=== PATIENT | male | born 1995 | race African-American/Black ===

== ENCOUNTER 2017-04-22 11:53 | Emergency (ER) | payer OTHER ==
--- NOTE | ~2017-04-22 | CT71 ---
[facility] A Service of [facility] RADIOLOGY TEXT RESULTS PATIENT: JOSE SHELL LOCATION: CFTX : 93 UNIT #: [id number] AGE: [address]: Fany Magaña SEX: M ORDER DR: [id number] [facility]. [place], [place] [address] [id number] E MR#: [id number] Acc #: [id number] NAME: JOSE SHELL : 1995 SEX: M STUDY DATE/TIME: 04/22/2017 13:29 UNIT: CFTX ROOM: STUDY DESCRIPTION: CT Head Wo Contrast Attending Physician: Fany Magaña Pa-C Ordering Physician: Fany Magaña Pa-C Primary Care Physician: No Primary Care Physician MEDICAL IMAGING REPORT This report is preliminary unless electronic signature is present EXAM CT head without contrast 04/22/2017. HISTORY 22-year-old male with headaches beginning this morning. COMPARISON None. TECHNIQUE Routine unenhanced axial images performed through the brain. This CT exam was performed with one or more of the following radiation dose reduction techniques: automatic exposure control, adjustment of mA and/or kV according to patient size, and iterative reconstruction. FINDINGS No hemorrhage, acute infarction, mass lesion, or abnormal extraaxial fluid collection. No midline shift or focal mass effect. Ventricular system is normal in size and configuration. No acute bony abnormality. Partially imaged mucous retention cyst left maxillary sinus. Visualized mastoid air cells are clear. IMPRESSION 1. No acute intracranial abnormality. 2. Partially imaged mucous retention cyst left maxillary sinus. Dictated by... Thomas Todd M.D. THIS IS AN ELECTRONICALLY VERIFIED REPORT Thomas Todd M.D. at 04/22/2017 5:00 PM [email or web address] [facility] A Service of [facility] RADIOLOGY TEXT RESULTS PATIENT: JOSE SHELL LOCATION: [place] : 93 UNIT #: [id number] AGE: [address]: Fany Magaña SEX: M ORDER DR: TD: 04/22/2017 16:46 JOB #: [id number] MEDICAL IMAGING REPORT Page 1 of 1 COPY
[2017-04-22 12:54] LABS: BASOPHIL% 0.2 % (0-2.5); DIFF IND NO; EOSINOPHIL% 0.1 % (0.0-7.0); HEMATOCRIT 48.8 % (38.0-50.0); HEMOGLOBIN 15.8 gm/dL (13.0-16.0); LYMPHOCYTE# 0.2 X10e3 (1.0-3.5); LYMPHOCYTE% 3.5 % (17.0-45.0); MEAN CELL VOLUME 96.8 FL (83-96); MEAN CORPUSCULAR HEMOGLOBIN 31.4 PG (28-34); MEAN CORPUSCULAR HGB CONC 32.4 g/dL (30-36); MEAN PLATELET VOLUME 8.8 FL (6.5-11.5); MONOCYTE# 0.6 X10e3 (0-1.0); MONOCYTE% 8.8 % (3.0-12.0); NEUTROPHIL% 87.4 % (40-75); PLATELET COUNT 207 X10e3 (140-420); RED BLOOD COUNT 5.04 X10e (3.90-5.60); RED CELL DISTRIBUTION WIDTH 13.2 % (11.0-15.5); WHITE BLOOD COUNT 6.9 X10e3 (4.0-10.5)
[2017-04-22 13:34] LABS: ALBUMIN SERUM 4.6 g/dL (3.5-5.0); BILIRUBIN, DIRECT 0.2 mg/dL (0.0-0.2); BILIRUBIN,INDIRECT 2.4 mg/dL (0.0-0.9); BILIRUBIN,TOTAL 2.6 mg/dL (0.2-2.0); CALCIUM SERUM 9.2 mg/dL (8.4-10.2); CREATININE SERUM 1.2 mg/dL (0.6-1.4); GLOM FILT RATE Estimated 97.5 mL/min (>60); POTASSIUM 3.3 mmol/L (3.5-5.1)
== END 2017-04-22 16:00 | disposition home or self-care (01) ==
LOC: CED 11:53 → CFTX 11:53
PROVIDERS: Physician Assistant Medical
DX: E86.0 Dehydration (principal)
CPT/HCPCS: 36415; 70450; 80048; 80076; 85025; 85379; 96361; 96374; 96375; 99284; J1885; J2405